=== PATIENT | male | born 1950 | race Caucasian/White ===

== ENCOUNTER 2020-03-25 17:55 | Inpatient (IN) ==
[2020-03-25] MEDS ORDERED: Naloxone 0.4 MG/ML INJ IVP PRN (21:22)
[2020-03-25] MEDS ORDERED: Ondansetron 4 MG/2 ML VIAL IVP PRN (22:54)
[2020-03-25] MEDS ORDERED: Acetaminophen 325 MG TABLET PO PRN (22:54)
[2020-03-25] MEDS ORDERED: Perflutren Lipid Microsphere 1.3 ML in 0.9 % Sodium Chloride 8.7 ML IVP PRN (23:00)
[2020-03-25] MEDS ORDERED: Ipratropium/Albuterol Neb 3 ML IH PRN (23:04)
[2020-03-26] MEDS: *HR* Heparin 5,000 UNIT/ML VIAL SQ SCH ×3 (06:15→22:00)
[2020-03-26 07:13] LABS: Red Cell Distribution Width 14.5 % (11.5-14.5)
[2020-03-26 07:15] LABS: Basophils % 0.2 %; Eosinophils % 0.2 %; Hemoglobin 16.6 g/dL (12.9-16.9); Immature Granulocytes % 0.3 % (0-4); Immature Platelets 6.1 % (1.1-6.1); Lymphocytes # 0.3 K/mcL (0.6-4.6); Mean Corpuscular HGB Conc 29.8 g/dL (31.6-35.5); Mean Corpuscular Hemoglobin 27.8 pg (28.0-33.3); Mean Corpuscular Volume 93.1 fL (83.0-100.0); Mean Platelet Volume 11.7 fL (9.4-12.4); Monocytes # 0.1 K/mcL (0.0-1.3); Monocytes % 1.3 %; Platelet Count 136 K/mcL (140-400); Red Blood Count 5.98 M/mcL (4.19-5.50); White Blood Count 6.1 K/mcL (4.3-11.1)
[2020-03-26 07:20] LABS: Hematocrit 55.7 % (37.5-50.1); Neutrophils # 5.7 K/mcL (1.6-8.9)
[2020-03-26] MEDS ORDERED: carvediloL 6.25 MG TABLET PO SCH (08:00)
[2020-03-26 08:26] LABS: ABG Base Excess 5 mEq/L (-2 to 3); ABG HCO3 36 mEq/L (21-27); ABG Oxygen Saturation 87 % (95-98); ABG PCO2 75 mmHg (35-45); ABG PH 7.28 pH Units (7.32-7.45); ABG PO2 62 mmHg (85-104); ABG TCO2 38 mEq/L (20-26)
[2020-03-26] MEDS ORDERED: Furosemide 40 MG/4 ML VIAL IVP SCH (09:00)
[2020-03-26] MEDS: Ipratropium/Albuterol Neb 3 ML IH SCH ×3 (10:33→21:30)
[2020-03-26] MEDS: predniSONE 20 MG TABLET PO SCH (10:57)
[2020-03-26] MEDS: lisinopriL 5 MG TABLET PO SCH (10:58)
[2020-03-26] MEDS: Aspirin Enteric Coated 81 MG Tablet PO SCH (10:58)
[2020-03-26] MEDS ORDERED: Perflutren Lipid Microsphere 1.3 ML in 0.9 % Sodium Chloride 8.7 ML IVP PRN (12:04)
[2020-03-26] MEDS: Budesonide/Formoterol 80/4.5 1 PUFF INH IH SCH ×2 (12:34→21:32)
[2020-03-26 12:35] LABS: Troponin I 0.03 ng/mL (< 0.04)
[2020-03-26 12:49] LABS: Calcium 9.2 mg/dL (8.6-10.3); Chol/HDL Ratio 3.9 (0-4.9); Magnesium 1.7 mg/dL (1.6-2.6); Phosphorous 3.1 mg/dL (2.7-4.5); Potassium 4.8 mEq/L (3.5-5.1)
[2020-03-26 14:53] LABS: Albumin 4.2 g/dL (3.5-5.7); Albumin/Globulin Ratio 1.6 (1.1-2.2); Bilirubin,Total 0.6 mg/dL (0.3-1.0); Calcium 9.3 mg/dL (8.6-10.3); Globulin 2.7 g/dL (2.4-3.5); Potassium 4.1 mEq/L (3.5-5.1); Total Protein 6.9 g/dL (6.4-8.9)
[2020-03-26 17:08] LABS: Adenovirus Not Detected (Not Detect); Bordetella Pertussis Not Detected (Not Detect); Chlamydophila pneumoniae Not Detected (Not Detect); Coronavirus 229E Not Detected (Not Detect); Coronavirus HKU1 Not Detected (Not Detect); Coronavirus NL63 Not Detected (Not Detect); Coronavirus OC43 Not Detected (Not Detect); Human Metapneumovirus Not Detected (Not Detect); Human Rhinovirus/Enterovirus Not Detected (Not Detect); Influenza A Subtype 2009 H1 Not Detected (Not Detect); Influenza B Not Detected (Not Detect); Mycoplasma pneumoniae Not Detected (Not Detect); Parainfluenza Virus 1 Not Detected (Not Detect); Parainfluenza Virus 2 Not Detected (Not Detect); Parainfluenza Virus 3 Not Detected (Not Detect); Parainfluenza Virus 4 Not Detected (Not Detect); Respiratory Syncytial Virus Not Detected (Not Detect); SARS-CoV-2 Not Detected (Not Detect)
[2020-03-27 02:03] LABS: Hematocrit 48.8 % (37.5-50.1); Mean Corpuscular HGB Conc 30.5 g/dL (31.6-35.5); Mean Corpuscular Hemoglobin 27.7 pg (28.0-33.3); Mean Corpuscular Volume 90.7 fL (83.0-100.0); Mean Platelet Volume 11.4 fL (9.4-12.4); Platelet Count 156 K/mcL (140-400); Red Blood Count 5.38 M/mcL (4.19-5.50); Red Cell Distribution Width 14.5 % (11.5-14.5)
[2020-03-27 02:04] LABS: Hemoglobin 14.9 g/dL (12.9-16.9); White Blood Count 12.2 K/mcL (4.3-11.1)
[2020-03-27 02:17] LABS: Albumin 3.5 g/dL (3.5-5.7); Albumin/Globulin Ratio 1.5 (1.1-2.2); Bilirubin,Total 0.5 mg/dL (0.3-1.0); Calcium 8.6 mg/dL (8.6-10.3); Globulin 2.4 g/dL (2.4-3.5); Magnesium 1.5 mg/dL (1.6-2.6); Phosphorous 2.1 mg/dL (2.7-4.5); Potassium 4.3 mEq/L (3.5-5.1); Total Protein 5.9 g/dL (6.4-8.9)
[2020-03-27] MEDS: Ipratropium/Albuterol Neb 3 ML IH SCH ×4 (03:52→23:13)
[2020-03-27] MEDS: *HR* Heparin 5,000 UNIT/ML VIAL SQ SCH ×3 (05:59→20:33)
[2020-03-27] MEDS: Metoprolol XL (24 HR) Succ 25 MG TAB.ER.24H PO SCH (08:33)
[2020-03-27] MEDS: Furosemide 20 MG TABLET PO SCH (08:33)
[2020-03-27] MEDS: Aspirin Enteric Coated 81 MG Tablet PO SCH (08:33)
[2020-03-27] MEDS: lisinopriL 5 MG TABLET PO SCH (08:34)
[2020-03-27] MEDS: predniSONE 20 MG TABLET PO SCH (08:34)
[2020-03-27] MEDS ORDERED: Spironolactone 25 MG TABLET PO SCH (09:00)
[2020-03-27] MEDS: Budesonide/Formoterol 80/4.5 1 PUFF INH IH SCH ×2 (09:53→23:13)
[2020-03-27] MEDS: MethylPREDNISolone 40 MG/ML VIAL IVP SCH (16:57)
[2020-03-28] MEDS: MethylPREDNISolone 40 MG/ML VIAL IVP SCH ×3 (00:42→15:06)
[2020-03-28] MEDS: Ipratropium/Albuterol Neb 3 ML IH SCH ×3 (04:42→15:42)
[2020-03-28] MEDS: *HR* Heparin 5,000 UNIT/ML VIAL SQ SCH ×2 (05:42→12:40)
[2020-03-28 06:16] LABS: Hematocrit 49.7 % (37.5-50.1); Hemoglobin 15.9 g/dL (12.9-16.9); Mean Corpuscular Hemoglobin 29.1 pg (28.0-33.3); Mean Platelet Volume 11.1 fL (9.4-12.4); Platelet Count 144 K/mcL (140-400); Red Blood Count 5.46 M/mcL (4.19-5.50); Red Cell Distribution Width 14.7 % (11.5-14.5); White Blood Count 11.7 K/mcL (4.3-11.1)
[2020-03-28 06:37] LABS: Calcium 8.9 mg/dL (8.6-10.3); Magnesium 1.9 mg/dL (1.6-2.6); Phosphorous 2.8 mg/dL (2.7-4.5); Potassium 4.2 mEq/L (3.5-5.1)
[2020-03-28] MEDS: lisinopriL 5 MG TABLET PO SCH (09:25)
[2020-03-28] MEDS: Aspirin Enteric Coated 81 MG Tablet PO SCH (09:25)
[2020-03-28] MEDS: Furosemide 20 MG TABLET PO SCH (09:26)
[2020-03-28] MEDS: Metoprolol XL (24 HR) Succ 25 MG TAB.ER.24H PO SCH (09:26)
[2020-03-28] MEDS: Budesonide/Formoterol 80/4.5 1 PUFF INH IH SCH (10:40)
[2020-03-28 15:29] VITALS: BP 123/73
[2020-03-28] MEDS ORDERED: FLU Vac QV 20-21 (6Month+)/PF 0.5 ML SYRINGE IM ONE (15:40)
== END 2020-03-28 16:47 | disposition home or self-care (01) | DRG 280 ==
LOC: 2ANU → SUATTDRO 19:18
PROVIDERS: ADMIT Internal Medicine; ATTEND Pharmacist